=== PATIENT | female | born 1990 | race American Indian/Alaskan Native ===

== ENCOUNTER 2017-03-29 14:59 | Emergency (ER) | payer MEDICAID ==
[2017-03-29 15:18] VITALS: BP 138/80; RESP 18; TEMP 98.2; O2SAT 100
--- NOTE | 2017-03-29 15:58 | ED PDOC ---
HPI: CCC, URI, Sore Throat Time Seen by Provider: 03/29/17 15:04 Chief Complaint (Nursing): ENT Problem Chief Complaint (Provider): Sore Throat History Per: Patient History/Exam Limitations: no limitations Onset/Duration Of Symptoms: Days (x3) Current Symptoms Are (Timing): Still Present Associated Symptoms: Sore Throat. denies: Fever Severity: Mild Additional Complaint(s): Patient is a 26 year old female presenting to the ED complaining of sore throat x3 days. 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 Denies fever. PMD: Arnel Mcdonald Past Medical History Reviewed: Historical Data, Nursing Documentation, Vital Signs Vital Signs: Last Vital Signs Temp 98.2 F 03/29/17 15:13 Pulse 94 H 03/29/17 15:13 Resp 18 03/29/17 15:13 BP 138/80 03/29/17 15:13 Pulse Ox 100 03/29/17 15:59 - Medical History PMH: No Chronic Diseases - Family History Family History: States: No Known Family Hx - Immunization History Hx Tetanus Toxoid Vaccination: No Hx Influenza Vaccination: No Hx Pneumococcal Vaccination: No - Home Medications Home Medications: Ambulatory Orders Medication Instructions Recorded No Known Home Med 03/29/17 - Allergies Allergies/Adverse Reactions: Allergies Allergy/AdvReac Type Severity Reaction Status Date / Time No Known Allergies Allergy Verified 03/29/17 15:25 Review of Systems ROS Statement: Except As Marked, All Systems Reviewed And Found Negative Constitutional: Negative for: Fever ENT: Positive for: Throat Pain Physical Exam - Reviewed Nursing Documentation Reviewed: Yes Vital Signs Reviewed: Yes - Physical Exam Appears: Positive for: Well, Non-toxic, No Acute Distress Head Exam: Positive for: ATRAUMATIC, NORMAL INSPECTION, NORMOCEPHALIC Skin: Positive for: Normal Color, Warm, DRY Eye Exam: Positive for: Normal appearance ENT: Negative for: Normal ENT Inspection, Pharynx Is, Pharyngeal Erythema, Tonsillar Exudate Neck: Positive for: Normal, Painless ROM Cardiovascular/Chest: Positive for: Regular Rate, Rhythm Respiratory: Positive for: Normal Breath Sounds. Negative for: Accessory Muscle Use, Rhonchi, Respiratory Distress Extremity: Positive for: Normal ROM Neurologic/Psych: Positive for: Alert, Oriented - ECG O2 Sat by Pulse Oximetry: 100 (RA) Pulse Ox Interpretation: Normal Medical Decision Making Medical Decision Making: Time: 15:05 Impression: 26 y/o female w/ sore throat Plan: Rapid Strep Throat Culture Rapid strep (-) Scribe Attestation: Documented by Charleen Stapleton acting as a scribe for Sima Booker. Provider Attestation: All medical record entries made by the Scribe were at my direction and personally dictated by me. I have reviewed the chart and agree that the record accurately reflects my personal performance of the history, physical exam, medical decision making, and the department course for this patient. I have also personally directed, reviewed, and agree with the discharge instructions and disposition. Disposition - Clinical Impression Clinical Impression: Pharyngitis - Patient ED Disposition Is Patient to be Admitted: No Counseled Patient/Family Regarding: Diagnosis, Need For Followup - Disposition Referrals: [facility] [Outside] Disposition: Routine/Home Disposition Time: 16:12 Condition: GOOD Instructions: Pharyngitis (ED)
[2017-03-29 16:24] VITALS: PULSE 82
== END 2017-03-29 16:24 | disposition home or self-care (01) ==
LOC: H.ER 14:59
DX: J02.9 Acute pharyngitis, unspecified (principal)

== ENCOUNTER 2018-06-18 16:57 | Emergency (ER) | payer MEDICAID ==
[2018-06-18 17:00] VITALS: TEMP 98.2
[2018-06-18 17:01] VITALS: BMI 26.6
[2018-06-18] MEDS ORDERED: Bacitracin 500 Units/gm Oint Foilpak UD TOP STA (17:18)
[2018-06-18] MEDS ORDERED: Tdap Vaccine 0.5 ml Vial (10-64 yrs) IM ONE ×2 (17:18→17:29)
--- NOTE | 2018-06-18 17:31 | ED PDOC ---
HPI: Wound Care - HPI Time Seen by Provider: 06/18/18 17:05 Chief Complaint (Nursing): Abnormal Skin Integrity Chief Complaint (Provider): Wound Care History Per: Patient Exam Limitations: no limitations Onset/Duration Of Symptoms: Days (x1) Current Symptoms Are (Timing): Still Present Additional Complaint(s): 27 year old female presents to the ED for evaluation of a laceration to her left ankle. Patient states that yesterday around 14:00, she was walking outside when a broken piece of glass kicked up and cut her left ankle. She reports controlling bleeding at home shortly afterwards, but did not seek medical attention secondary to attending a concert last night. Today, she notes there was a little bit of bleeding and localized discomfort, prompting her to seek evaluation. Patient has no other complaints at this time. Otherwise: (-) fever ( -) foreign body sensation. Tetanus not up to date. LNMP: 05/28/18 PMD: Bacilio Gross Past Medical History Reviewed: Historical Data, Nursing Documentation, Vital Signs Vital Signs: Last Vital Signs Temp 98.2 F 06/18/18 17:00 Pulse 99 H 06/18/18 17:00 Resp 16 06/18/18 17:00 BP 152/96 H 06/18/18 17:00 Pulse Ox 100 06/18/18 17:00 - Medical History PMH: No Chronic Diseases - Surgical History Surgical History: No Surg Hx - Family History Family History: States: Unknown Family Hx - Social History Current smoker - smoking cessation education provided: No Alcohol: Social Drugs: Denies - Immunization History Hx Tetanus Toxoid Vaccination: No - Home Medications Home Medications: Ambulatory Orders Medication Instructions Recorded Bacitracin Ointment [Bacitracin] 1 applic TOP BID #1 tube 06/18/18 - Allergies Allergies/Adverse Reactions: Allergies Allergy/AdvReac Type Severity Reaction Status Date / Time No Known Allergies Allergy Verified 06/18/18 17:00 Review of Systems ROS Statement: Except As Marked, All Systems Reviewed And Found Negative Skin: Positive for: Other (laceration to left ankle with localized discomfort) Physical Exam - Reviewed Nursing Documentation Reviewed: Yes Vital Signs Reviewed: Yes - Physical Exam Comments: GENERAL APPEARANCE: Patient is awake, alert, oriented x 3, in no acute distress. Ambulatory in ED, resting comfortably. SKIN: Warm, dry; (-) cyanosis. NECK: Supple, FROM ENT: Mucus membranes moist. Airway patent, (-) stridor. RESPIRATORY: Lungs clear to auscultation bilaterally. Respirations even and nonlabored. (-) rales (-) rhonchi (-) wheezing CARDIAC: RRR LEFT ANKLE: 1.5cm linear, horizontal, scabbed superficial laceration to medial aspect, (-) active bleeding, (-) swelling, (-) erythema, (-) warmth, (-) tenderness (-) ecchymosis. Full ROM to ankle and foot. Distal pulses and sensation in tact. (-) calf tenderness NEURO AND PSYCH: Mental status as above. Speech clear, gait steady. (-) focal deficit. - ECG O2 Sat by Pulse Oximetry: 100 (RA) Pulse Ox Interpretation: Normal Medical Decision Making Medical Decision Making: Time: 1717 Initial Impression: wound check, ankle laceration Initial Plan: --Tetanus update --Wound irrigation with normal saline. Bacitracin dressing applied since >24 hours have passed since injury, sutures cannot be placed at this time. --Repeat BP, patient denies history of HTN. --Re-evaluation 1750 Repeat BP: 134/80 Repeat HR:88 On re-evaluation, patient reports improvement of symptoms. On exam, patient remains AAOx3, in no acute distress. On exam, neck is supple, lungs CTA, cardiac RRR, neuro exam shows no focal findings. VSS, stable for discharge. Educated on wound care. Diagnostic results d/w the patient in great detail. Dx of ankle laceration d/w the patient. Based on history, exam and diagnostic results plan will be for discharge and outpatient follow up. Advised to follow up with primary care physician in 1-2 days without fail. Advised to take medication as prescribed. Return to the emergency room at any time for any new or worsening symptoms. Patient states she fully agrees with and understands discharge instructions. States that she agrees with the plan and disposition. Verbalized and repeated discharge instructions and plan. I have given the patient opportunity to ask any additional questions. Scribe Attestation: Documented by Marcie Islas, acting as a scribe for Chle Gilliland PA-C. Provider Scribe Attestation: All medical record entries made by the Scribe were at my direction and personally dictated by me. I have reviewed the chart and agree that the record accurately reflects my personal performance of the history, physical exam, medical decision making, and the department course for this patient. I have also personally directed, reviewed, and agree with the discharge instructions and disposition. Disposition - Clinical Impression Clinical Impression: Laceration of ankle - Patient ED Disposition Is Patient to be Admitted: No Counseled Patient/Family Regarding: Studies Performed, Diagnosis, Need For Followup, Rx Given - Disposition Referrals: Bacilio Gross, [facility] [Advanced Practice Nurse] - Disposition: Routine/Home Disposition Time: 17:50 Condition: IMPROVED Additional Instructions: FOLLOW UP WITH PMD IN 1-2 DAYS WITHOUT FAIL. RETURN TO ED WITH ANY NEW OR WORSENING SYMPTOMS. KEEP WOUND CLEAN AND DRY. APPLY OINTMENT DIRECTED. Prescriptions: Bacitracin Ointment [Bacitracin] 1 applic TOP BID #1 tube Instructions: Wound Care Forms: [facility] (Kenyan) Print Language: NEPALI - POA Present On Arrival: None
[2018-06-18 18:21] VITALS: BP 134/80; PULSE 88; RESP 15
[2018-06-19 14:56] VITALS: O2SAT 100
== END 2018-06-18 18:21 | disposition home or self-care (01) ==
LOC: H.ER 16:57
DX: S91.012A Laceration without foreign body, left ankle, initial encounter (principal); W26.8XXA Contact with other sharp object(s), not elsewhere classified, initial encounter; Y92.89 Other specified places as the place of occurrence of the external cause